=== PATIENT | male | born 1990 | race Caucasian/White ===

== ENCOUNTER 2018-10-02 11:29 | Emergency (ER) | payer SELFPAY ==
[~2018-10-02] VITALS: Ht 180.3 cm; Wt 68.0 kg
--- OUTSIDE RECORDS SUMMARY | 2018-10-02 11:33 | XMS REPORT ---
Author ASHKAN Hurtado [facility] Address [address] [place] [address] Care Team Providers Care Bottle Tester Name Role Phone HUMZA ASHKAN Unavailable PROBLEMS Type Condition ICD9-CM Code [id number] Code Onset Dates Condition Status SNOMED Code Problem Attention deficit hyperactivity disorder (ADHD), predominantly hyperactive type F90.1 Active [id number] ALLERGIES No Information ENCOUNTERS Encounter Location Date Diagnosis [address] [address] Feb, Exposure to sexually transmitted disease (STD) Z20.[address] [address] December, Attention deficit hyperactivity disorder (ADHD), predominantly hyperactive type F90.1 [facility] [address] [address] Nov, Attention deficit hyperactivity disorder (ADHD), predominantly hyperactive type F90.1 and High risk medication use Z79.899 [facility] [address] [place] [id number] [place] [phone] Oct, [facility] [address] [address] Sep, Possible exposure to STD Z20.2 and Dysuria R30.0 [facility] IN [address] [address] Feb, Dysuria R30.0 ; Screening for STDs (sexually transmitted diseases) Z11.3 and Acute cystitis without hematuria N30.00 [facility] [place] [address] [place] [id number] [place] [address] December, Screen for STD (sexually transmitted disease) Z11.3 and Unprotected sex Z72.51 IMMUNIZATIONS No Known Immunizations SOCIAL HISTORY Never Assessed REASON FOR VISIT STD treatment (STATE) PLAN OF CARE VITAL SIGNS Height 70.5 in 2017-10-20 Weight 167.2 lbs 2017-10-20 Temperature 97.8 degrees Fahrenheit 2017-10-20 Heart Rate 84 bpm 2017-10-20 Respiratory Rate 20 2017-10-20 BMI 23.65 kg/m2 2017-10-20 Blood pressure systolic 122 mmHg 2017-10-20 Blood pressure diastolic 74 mmHg 2017-10-20 MEDICATIONS No Known Medications RESULTS No Results PROCEDURES No Known procedures INSTRUCTIONS MEDICATIONS ADMINISTERED No Known Medications MEDICAL (GENERAL) HISTORY Type Description Date Medical History ADHD Surgical History T&A 2005 Surgical History sinus surgery Hospitalization History food posioning 2013
--- OUTSIDE RECORDS SUMMARY | 2018-10-02 11:33 | XMS REPORT ---
Author Author ASHKAN CHING [facility] Address [address] [place] [address] Care Team Providers Care Suction Worker Name Role Phone ASHKAN CHING Unavailable PROBLEMS Type Condition ICD9-CM Code [id number] Code Onset Dates Condition Status SNOMED Code Problem Attention deficit hyperactivity disorder (ADHD), predominantly hyperactive type F90.1 Active [id number] ALLERGIES No Information ENCOUNTERS Encounter Location Date Diagnosis [facility] [address] [id number] Apr, [facility] [place] [id number] [address] Mar, Encounter for immunization Z23 [facility] [address] [address] Feb, Exposure to sexually transmitted disease (STD) Z20.[address] [address] December, Attention deficit hyperactivity disorder (ADHD), predominantly hyperactive type F90.1 [facility] [address] [address] Nov, Attention deficit hyperactivity disorder (ADHD), predominantly hyperactive type F90.1 and High risk medication use Z79.899 [facility] [address] [place] [phone] Oct, [facility] [address] [address] Sep, Possible exposure to STD Z20.2 and Dysuria R30.0 [facility] [address] [place] [phone] Feb, Dysuria R30.0 ; Screening for STDs (sexually transmitted diseases) Z11.3 and Acute cystitis without hematuria N30.00 [facility] [address] [facility] [id number] [place] [address] Dec, 2016 Screen for STD (sexually transmitted disease) Z11.3 and Unprotected sex Z72.51 IMMUNIZATIONS Vaccine Route Administration Date Status TDAP (BOOSTRIX) IM Intramuscular Apr 05, 2018 Administered SOCIAL HISTORY Never Assessed REASON FOR VISIT TDAP. [email or web address] PLAN OF CARE VITAL SIGNS MEDICATIONS Unknown Medications RESULTS No Results PROCEDURES Procedure Date Ordered Result Body Site TDAP (BOOSTRIX) Apr 05, 2018 SINGLE IMMUNIZATION ADMIN Apr 05, 2018 INSTRUCTIONS MEDICATIONS ADMINISTERED No Known Medications MEDICAL (GENERAL) HISTORY Type Description Date Medical History ADHD Surgical History T&A 2006 Surgical History sinus surgery Hospitalization History food posioning 2013
--- OUTSIDE RECORDS SUMMARY | 2018-10-02 11:33 | XMS REPORT ---
Author Author JAS MEDINA [facility] Address [address] [place] [address] Care Team Providers Care Inter Com Servicer Name Role Phone JAS MEDINA Unavailable PROBLEMS Type Condition ICD9-CM Code [id number] Code Onset Dates Condition Status SNOMED Code Problem Attention deficit hyperactivity disorder (ADHD), predominantly hyperactive type F90.1 Active [id number] ALLERGIES No Information ENCOUNTERS Encounter Location Date Diagnosis [place] [id number] [address] Feb, Exposure to sexually transmitted disease (STD) Z20.2 [facility] [address] [address] December, Attention deficit hyperactivity disorder (ADHD), predominantly hyperactive type F90.1 [facility] [address] [address] Nov, Attention deficit hyperactivity disorder (ADHD), predominantly hyperactive type F90.1 and High risk medication use Z79.899 [facility] [address] [place] [id number] [place] [address] Oct, [facility] [address] [address] Sep, Possible exposure to STD Z20.2 and Dysuria R30.0 [facility] [address] [address] Feb, Dysuria R30.0 ; Screening for STDs (sexually transmitted diseases) Z11.3 and Acute cystitis without hematuria N30.00 [facility] [address] [address] December, Screen for STD (sexually transmitted disease) Z11.3 and Unprotected sex Z72.51 IMMUNIZATIONS No Known Immunizations SOCIAL HISTORY Never Assessed REASON FOR VISIT Referral PLAN OF CARE VITAL SIGNS MEDICATIONS No Known Medications RESULTS No Results PROCEDURES No Known procedures INSTRUCTIONS MEDICATIONS ADMINISTERED No Known Medications MEDICAL (GENERAL) HISTORY Type Description Date Medical History ADHD Surgical History T&A 2006 Surgical History sinus surgery Hospitalization History food posioning 2013
--- OUTSIDE RECORDS SUMMARY | 2018-10-02 11:33 | XMS REPORT ---
Author Author ARIELLE LABOY [facility] Address [address] [place] [address] Care Team Providers Care Health Care Law Specialist Name Role Phone ARIELLE LABOY Unavailable PROBLEMS Unknown Problems ALLERGIES No Known Allergies SOCIAL HISTORY Never Assessed PLAN OF CARE VITAL SIGNS Height 70.5 in 2016-12-29 Weight 155.0 lbs 2016-12-29 Temperature 98.1 degrees Fahrenheit 2016-12-29 Heart Rate 76 bpm 2016-12-29 Respiratory Rate 18 2016-12-29 BMI 21.92 kg/m2 2016-12-29 Blood pressure systolic 108 mmHg 2016-12-29 Blood pressure diastolic 66 mmHg 2016-12-29 MEDICATIONS Medication Instructions Dosage Frequency Start Date End Date Duration Status Singulair 10 MG Orally Once a day 1 tablet in the evening 24h Active RESULTS Name Result Date Reference Range GC/CHLAM URINE (STATE) 2016-12-29 CHLAMYDIA GC HEP C ANTIBODY (STATE) 2016-12-29 RESULTS Non-reactive HIV (STATE) 2016-12-29 HEP B SURFACE ANTIGEN (STATE) 2016-12-29 HEP B ANTIBODY Non-reactive HEP B ANTIBODY (RML) HEP B ANTIBODY (STATE) HEP C ANTIBODY (STATE) 2016-12-29 RESULTS Non-reactive SYPHILIS (STATE) 2016-12-29 HIV (STATE) 2016-12-29 HEP B SURFACE ANTIGEN (STATE) 2016-12-29 HEP B ANTIBODY Non-reactive HEP B ANTIBODY (RML) HEP B ANTIBODY (STATE) PROCEDURES Procedure Date Ordered Result Body Site No Charge December 29, 2016 VENIPUNCT, ROUTINE* December 29, 2016 IMMUNIZATIONS No Known Immunizations MEDICAL (GENERAL) HISTORY Type Description Date Surgical History T&A 2006 Hospitalization History food posioning 2013
--- OUTSIDE RECORDS SUMMARY | 2018-10-02 11:33 | XMS REPORT ---
Author Author JAS MEDINA [facility] Address [address] [place] [address] Care Team Providers Care Disk And Tape Machine Tender Name Role Phone JAS MEDINA Unavailable PROBLEMS Type Condition ICD9-CM Code [id number] Code Onset Dates Condition Status SNOMED Code Problem Attention deficit hyperactivity disorder (ADHD), predominantly hyperactive type F90.1 Active [id number] ALLERGIES No Known Allergies ENCOUNTERS Encounter Location Date Diagnosis [place] [id number] [address] Feb, Exposure to sexually transmitted disease (STD) Z20.2 [facility] [address] [address] December, Attention deficit hyperactivity disorder (ADHD), predominantly hyperactive type F90.1 [facility] [address] [address] Nov, Attention deficit hyperactivity disorder (ADHD), predominantly hyperactive type F90.1 and High risk medication use Z79.899 [facility] [address] [place] [id number] [place] [address] Oct, [facility] [address] [address] Sep, Possible exposure to STD Z20.2 and Dysuria R30.0 [facility] WALK IN [address] [address] Feb, Dysuria R30.0 ; Screening for STDs (sexually transmitted diseases) Z11.3 and Acute cystitis without hematuria N30.00 [facility]ALK IN [facility] [address] [address] December, Screen for STD (sexually transmitted disease) Z11.3 and Unprotected sex Z72.51 IMMUNIZATIONS No Known Immunizations SOCIAL HISTORY Never Assessed REASON FOR VISIT Establish Care--Jodi, --Transferring care from [facility] in . Needing refills on medications, --Moved from region and needing new provider PLAN OF CARE Activity Details Follow Up 2 Weeks Reason:ADHD medication VITAL SIGNS Height 70.5 in 2017-12-19 Weight 166.0 lbs 2017-12-19 Temperature 98.1 degrees Fahrenheit 2017-12-19 Heart Rate 84 bpm 2017-12-19 Respiratory Rate 20 2017-12-19 BMI 23.48 kg/m2 2017-12-19 Blood pressure systolic 122 mmHg 2017-12-19 Blood pressure diastolic 70 mmHg 2017-12-19 MEDICATIONS Medication Instructions Dosage Frequency Start Date End Date Duration Status Adderall XR 30 MG Orally Once a day 1 capsule in the morning 24h Not-Taking Singulair 10 mg Orally Once a day 1 tablet in the evening 24h Active RESULTS No Results PROCEDURES Procedure Date Ordered Result Body Site DRUG TEST PRSMV CHEM ANLYZR December 19, 2017 INSTRUCTIONS MEDICATIONS ADMINISTERED No Known Medications MEDICAL (GENERAL) HISTORY Type Description Date Medical History ADHD Surgical History T&A 2005 Surgical History sinus surgery Hospitalization History food posioning 2013
--- OUTSIDE RECORDS SUMMARY | 2018-10-02 11:33 | XMS REPORT ---
Author Author BRIGID LUJAN Organization [facility] [facility] Address [address] [place] [address] Care Team Providers Care C 13 Catapult Operator Name Role Phone BRIGID LUJAN Unavailable PROBLEMS Unknown Problems ALLERGIES No Known Allergies ENCOUNTERS Encounter Location Date Diagnosis [facility] [address], [place] [address] Nov, [facility] [address] [place] [address] Oct, [facility] IN [facility] [address] [place] [id number] [place] [address] Sep, Possible exposure to STD Z20.2 and Dysuria R30.0 [facility] [address], [place] [address] Feb, Dysuria R30.0 ; Screening for STDs (sexually transmitted diseases) Z11.3 and Acute cystitis without hematuria N30.00 [facility] IN [facility] [address], [place] [address] December, Screen for STD (sexually transmitted disease) Z11.3 and Unprotected sex Z72.51 IMMUNIZATIONS No Known Immunizations SOCIAL HISTORY Never Assessed REASON FOR VISIT std check- Tuesday had unprotected sex- having painful urination JStrasserRN PLAN OF CARE Activity Details Follow Up prn Reason: VITAL SIGNS Height 70.5 in 2017-02-24 Weight 163.8 lbs 2017-02-24 Temperature 97.9 degrees Fahrenheit 2017-02-24 Heart Rate 78 bpm 2017-02-24 Respiratory Rate 18 2017-02-24 BMI 23.17 kg/m2 2017-02-24 Blood pressure systolic 142 mmHg 2017-02-24 Blood pressure diastolic 86 mmHg 2017-02-24 MEDICATIONS Medication Instructions Dosage Frequency Start Date End Date Duration Status Bactrim DS 800-160 MG Orally Twice a day 1 tablet 12h Feb,Feb 10 day(s) Active AZO Cranberry 250-30 MG Active RESULTS Name Result Date Reference Range CULTURE, URINE 2017-02-24 Urine Culture, Routine Final report Result 1 No growth HIV (STATE) 2017-02-24 GC/CHLAM URINE (STATE) 2017-02-24 CHLAMYDIA GC HEP C ANTIBODY (STATE) 2017-02-24 RESULTS non-reactive SYPHILIS (STATE) 2017-02-24 HIV (STATE) 2017-02-24 UA LONG DIP (IN HOUSE) 2017-02-24 Lot # [id number] Exp date 2018-01-19 Clarity clear Color orange Odor none GLU negative MARTY negative KET negative SG >=1.030 BLO negative pH 6.0 Protein 1+ URO 1.0 NIT positive PATRICK negative Lot # [id number] Exp date 2017-09 PROCEDURES Procedure Date Ordered Result Body Site URINALYSIS, AUTO, W/O SCOPE February 24, 2017 No Charge February 24, 2017 VENIPUNCT, ROUTINE* February 24, 2017 URINE CULTURE/COLONY COUNT February 24, 2017 INSTRUCTIONS MEDICATIONS ADMINISTERED No Known Medications MEDICAL (GENERAL) HISTORY Type Description Date Surgical History T&A 2005 Surgical History sinus surgery Hospitalization History food posioning 2013
--- OUTSIDE RECORDS SUMMARY | 2018-10-02 11:33 | XMS REPORT ---
Author Author AQUILES CRISTINA Organization [facility] Address [address] [place] [address] Care Team Providers Care Baker Pastry Name Role Phone REJI CRISTINATA Unavailable PROBLEMS Type Condition ICD9-CM Code [id number] Code Onset Dates Condition Status SNOMED Code Problem Attention deficit hyperactivity disorder (ADHD), predominantly hyperactive type F90.1 Active [id number] ALLERGIES No Known Allergies ENCOUNTERS Encounter Location Date Diagnosis [facility] [address] [place] [id number] [place] [address] Mar, Encounter for immunization Z23 [facility] [address] [place] [address] Feb, Exposure to sexually transmitted disease (STD) Z20.2 [facility] [address] [address] December, Attention deficit hyperactivity disorder (ADHD), predominantly hyperactive type F90.1 [facility] [address] [place] [id number] [place] [address] Nov, Attention deficit hyperactivity disorder (ADHD), predominantly hyperactive type F90.1 and High risk medication use Z79.899 [facility] [address] [place] [id number] [place] [address] Oct, [facility] [address] [address] Sep, Possible exposure to STD Z20.2 and Dysuria R30.0 [facility] [address] [place] [id number] [place] [address] Feb, Dysuria R30.0 ; Screening for STDs (sexually transmitted diseases) Z11.3 and Acute cystitis without hematuria N30.00 [facility] [address] [facility] [id number] [place] [address] December, Screen for STD (sexually transmitted disease) Z11.3 and Unprotected sex Z72.51 IMMUNIZATIONS No Known Immunizations SOCIAL HISTORY Never Assessed REASON FOR VISIT STD check-pt reports his partner rec'd positive chlamydia results, no symptoms- AHarrymanRN PLAN OF CARE Activity Details Follow Up prn Reason: VITAL SIGNS Height 70.5 in 2018-02-28 Weight 168.8 lbs 2018-02-28 Temperature 99.0 degrees Fahrenheit 2018-02-28 Heart Rate 78 bpm 2018-02-28 Respiratory Rate 20 2018-02-28 BMI 23.88 kg/m2 2018-02-28 Blood pressure systolic 116 mmHg 2018-02-28 Blood pressure diastolic 74 mmHg 2018-02-28 MEDICATIONS Medication Instructions Dosage Frequency Start Date End Date Duration Status Singulair 10 mg Orally Once a day 1 tablet in the evening 24h Active RESULTS Name Result Date Reference Range GC/CHLAM URINE (STATE) 2018-02-28 CHLAMYDIA GC PROCEDURES Procedure Date Ordered Result Body Site No Charge February 28, 2018 INSTRUCTIONS MEDICATIONS ADMINISTERED No Known Medications MEDICAL (GENERAL) HISTORY Type Description Date Medical History ADHD Surgical History T&A 2005 Surgical History sinus surgery Hospitalization History food posioning 2013
[2018-10-02 12:11] LABS: BASOPHILS % (AUTO) 0 % (0-10); EOSINOPHILS % (AUTO) 0 % (0-10); HEMATOCRIT 42 % (40-54); LYMPHOCYTES # (AUTO) 1.4 X 10^3 (1.0-4.0); LYMPHOCYTES % (AUTO) 10 % (12-44); MEAN CORPUSCULAR HEMOGLOBIN 31 PG (25-34); MEAN CORPUSCULAR HGB CONC 34 G/DL (32-36); MEAN CORPUSCULAR VOLUME 92 FL (80-99); MEAN PLATELET VOLUME 9.5 FL (7.4-10.4); MONOCYTES # (AUTO) 0.8 X 10^3 (0.0-1.0); MONOCYTES % (AUTO) 6 % (0-12); NEUTROPHILS # (AUTO) 11.8 X 10^3 (1.8-7.8); NEUTROPHILS % (AUTO) 84 % (42-75); PLATELET COUNT 318 10^3/uL (130-400); RED CELL DISTRIBUTION WIDTH 12.6 % (10.0-14.5); WHITE BLOOD COUNT 14.1 10^3/uL (4.3-11.0)
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
[2018-10-02 12:28] LABS: ALANINE AMINOTRANSFERASE 14 U/L (0-55); ALBUMIN 4.7 GM/DL (3.2-4.5); ALKALINE PHOSPHATASE 91 U/L (40-136); BILIRUBIN,TOTAL 0.4 MG/DL (0.1-1.0); BUN/CREATININE RATIO 7; CALCIUM 9.5 MG/DL (8.5-10.1); CARBON DIOXIDE 27 MMOL/L (21-32); CHLORIDE 104 MMOL/L (98-107); CREATININE SERUM 0.97 MG/DL (0.60-1.30); GFR ESTIMATED > 60; GLUCOSE 103 MG/DL (70-105); POTASSIUM 3.8 MMOL/L (3.6-5.0); SODIUM 141 MMOL/L (135-145); TOTAL PROTEIN 7.7 GM/DL (6.4-8.2)
[2018-10-02 12:29] LABS: BAND NEUTROPHILS 0 %; BASOPHILS % (MANUAL) 0 %; EOSINOPHILS % (MANUAL) 1 %; LYMPHOCYTES % (MANUAL) 11 %; MONOCYTES % (MANUAL) 5 %; NEUTROPHILS % (MANUAL) 83 %; RBC MORPH NORMAL
[2018-10-02] MEDS ORDERED: LEVETIRACETAM 500 MG (KEPPRA) TAB PO ONE (12:30)
[2018-10-02 12:32] LABS: BILIRUBIN,URINE NEGATIVE (NEGATIVE); CLARITY,URINE CLEAR; COLOR,URINE YELLOW; GLUCOSE, URINE (UA) NEGATIVE (NEGATIVE); KETONES,URINE NEGATIVE (NEGATIVE); LEUKOCYTE ESTERASE ,URINE NEGATIVE (NEGATIVE); NITRITE,URINE NEGATIVE (NEGATIVE); PH,URINE 7 (5-9); PROTEIN,URINE NEGATIVE (NEGATIVE); UROBILINOGEN,URINE NORMAL (NORMAL)
[2018-10-02 12:41] LABS: AMPHETAMINE SCREEN, URINE NEGATIVE (NEGATIVE); BARBITURATE SCREEN URINE NEGATIVE (NEGATIVE); BENZODIAZEPINES SCREEN URINE NEGATIVE (NEGATIVE); CANNABINOID SCREEN, URINE POSITIVE (NEGATIVE); COCAINE SCREEN URINE NEGATIVE (NEGATIVE); METHADONE STAT NEGATIVE (NEGATIVE); METHAMPHETAMINE SCREEN URINE S NEGATIVE (NEGATIVE); OPIATE SCREEN URINE NEGATIVE (NEGATIVE); OXYCODONE STAT NEGATIVE (NEGATIVE); PROPOXYPHENE STAT NEGATIVE (NEGATIVE); TRICYCLIC ANTIDEPRESSANTS SCRE NEGATIVE (NEGATIVE)
[2018-10-02 12:43] LABS: BACTERIA,URINE TRACE /HPF; HYALINE CASTS, URINE RARE /LPF; SQUAMOUS EPITHELIAL CELL,UR RARE /HPF
--- NOTE | 2018-10-02 12:50 | Diagnostic Imaging Report ---
Indication: Left femur pain, recent fracture and ORIF. AP and lateral views of the left femur are obtained. There is no previous study available for comparison. Intramedullary alysia is in place in the left femoral shaft with femoral neck screw. A subacute fracture seen in the intertrochanteric and subtrochanteric region, with near-anatomic alignment with hardware in place. There is no definite acute abnormality. Impression: Subacute left proximal femoral fracture with orthopedic hardware in place, fracture is in near-anatomic alignment. Dictated by: Dictated on workstation # [id number]
[2018-10-02] MEDS ORDERED: LEVE500T99 PO (13:25)
[2018-10-02 13:50] VITALS: BP 103/72
== END 2018-10-02 13:54 | disposition home or self-care (01) ==
LOC: EDUNIT# 11:29 → ER 11:30
DX: R56.9 Unspecified convulsions (principal); M79.652 Pain in left thigh; Z98.890 Other specified postprocedural states; Z87.820 Personal history of traumatic brain injury
CPT/HCPCS: 36415; 73552; 80053; 80306; 81000; 85007; 85027; 86141; 87430

== ENCOUNTER 2018-12-14 12:50 | Outpatient (RCR) | payer OTHER ==
[~2018-12-14 12:50] MED LIST: LEVE500T99 PO
== END 2018-12-22 12:58 | disposition home or self-care (01) ==
PROVIDERS: ATTEND Orthopaedic Surgery Sports Medicine
DX: S72.141D Displaced intertrochanteric fracture of right femur, subsequent encounter for closed fracture with routine healing (principal); W22.09XD Striking against other stationary object, subsequent encounter

== ENCOUNTER 2019-02-15 09:05 | Outpatient (RCR) | payer OTHER | END 2019-02-15 10:20 | disposition home or self-care (01) | PROVIDERS: ATTEND Physician Assistant Medical | DX: S72.141D Displaced intertrochanteric fracture of right femur, subsequent encounter for closed fracture with routine healing (principal); W22.09XD Striking against other stationary object, subsequent encounter ==